=== PATIENT | female | born 1960 | race Caucasian/White ===

== ENCOUNTER 2018-02-12 18:07 | Emergency (ER) | payer SELFPAY ==
[2018-02-12 18:20] VITALS: BP 151/70; PULSE 66; TEMP 98.5; BMI 27.4
--- NOTE | 2018-02-12 18:21 | PDOC ---
Rapid Medical Evaluation Time Seen by Provider: 02/12/18 18:16 Medical Evaluation: Allergies Allergy/AdvReac Type Severity Reaction Status Date / Time No Known Allergies Allergy Verified 02/12/18 18:17 02/12/18 18:17 The patient complaints of: throbbing occipital head pain x 3weeks without nausea , visual changes, recent fall, or MVA. No hx of headache or imaging On brief exam: vss, perrl, no cervical tenderness The patient was ordered for: head ct The patient will proceed to the ED Discharge Disposition - Diagnosis Headache - Referrals - Patient Instructions - Post Discharge Activity
[2018-02-12] MEDS ORDERED: KETOROLAC TROMETHAMINE 30 MG/1 ML VIAL IVPUSH ONE (19:28)
[2018-02-12] MEDS ORDERED: METOCLOPRAMIDE HCL INJECTION 10 MG/2 ML VIAL IVPUSH ONE (19:28)
[2018-02-12] MEDS ORDERED: SODIUM CHLORIDE 1,000 ML IV STA (19:29)
--- NOTE | 2018-02-12 19:36 | PDOC ---
History of Present Illness - General Chief Complaint: Headache Stated Complaint: HEADACHE Time Seen by Provider: 02/12/18 18:16 History Source: Patient Exam Limitations: No Limitations - History of Present Illness Initial Comments: 02/12/18 19:28 HISTORY OF PRESENT ILLNESS: This is a 57-year-old woman past medical history of headaches who presents emergency Department with occipital headache for 3 weeks. Patient is tried [id number] medications such as Advil, Tylenol and Excedrin with minimal relief of pain. Patient states the pain is an 8/10 and describes as a feeling that "I'm being punched in the head." Patient denies any trauma or blurry vision. Patient denies fevers, chills, nausea, vomiting. No recent travel or sick contacts. PAST MEDICAL HISTORY: see HPI SURGICAL HISTORY: Denies ALLERGIES: No known drug allergies REVIEW OF SYSTEMS General/Constitutional: Denies fever or chills. Denies weakness, weight change. HEENT: Denies change in vision. Denies ear pain or discharge. Denies sore throat. Cardiovascular: Denies chest pain or shortness of breath. Respiratory: Denies cough, wheezing, or hemoptysis. Gastrointestinal: Denies nausea, vomiting, diarrhea or constipation. Denies rectal bleeding. Genitourinary: Denies dysuria, frequency, or change in urination. Musculoskeletal: Denies joint or muscle swelling or pain. Denies neck or back pain. Skin and breasts: Denies rash or easy bruising. Neurologic: Occipital headache. No vertigo, loss of consciousness, or loss of sensation. Psychiatric: Denies depression or anxiety. Endocrine: Denies increased thirst. Denies abnormal weight change. Hematologic/Lymphatic: Denies anemia, easy bleeding, or history of blood clots. Allergic/Immunologic: Denies hives or skin allergy. Denies latex allergy. PHYSICAL EXAM General Appearance: Well-appearing, appropriately dressed. No apparent distress , no intoxication. HEENT: EOMI, PERRLA, normal ENT inspection, normal voice, TMs normal, pharynx normal. No conjunctival pallor. No photophobia, scleral icterus. Neck: Supple. Trachea midline. No tenderness, rigidity, carotid bruit, stridor , lymphadenopathy, or thyromegaly. Respiratory/Chest: Lungs CTAB. No shortness of breath, chest tenderness, respiratory distress, accessory muscle use. No crackles, rales, rhonchi, stridor , wheezing, dullness Cardiovascular: RRR. S1, S2. No JVD, murmur, bradycardia, tachycardia. Vascular Pulses: Dorsalis-Pedis (R): 2+, Dorsalis-Pedis (L): 2+ Gastrointestinal/Abdominal: Normal bowel sounds. Abdomen soft, non-distended. No tenderness or rebound tenderness. No organomegaly, pulsatile mass, guarding, hernia, hepatomegaly, splenomegaly. Lymphatic: No adenopathy, tenderness. Musculoskeletal/Extremities: Normal inspection. FROM of all extremities, normal capillary refill. Pelvis Stable. No CVA tenderness. No tenderness to extremities, pedal edema, swelling, erythema or deformity. Integumentary: Appropriate color, dry, warm. No cyanosis, erythema, jaundice or rash Neurologic: Fully oriented, alert. Appropriate mood/affect. Motor strength 5/ 5. No appreciable EOM palsy, or sensory deficit. Right sided facial palsy present which states is her baseline. Other CN testing WNL. Past History - Past Medical History Allergies/Adverse Reactions: Allergies Allergy/AdvReac Type Severity Reaction Status Date / Time No Known Allergies Allergy Verified 02/12/18 18:17 Home Medications: Ambulatory Orders NK [No Known Home Medication] 02/12/18 COPD: No - Surgical History Cholecystectomy: Yes - Immunization History Immunization Up to Date: Yes - Suicide/Smoking/Psychosocial Hx Smoking History: Never smoked Hx Alcohol Use: No Drug/Substance Use Hx: No *Physical Exam - Vital Signs Last Vital Signs Temp Pulse Resp BP Pulse Ox 98.5 F 66 18 151/70 100 02/12/18 18:18 02/12/18 18:18 02/12/18 18:18 02/12/18 18:18 02/12/18 18:18 Medical Decision Making - Medical Decision Making 02/12/18 19:32 A/P: 57-year-old woman occipital headache for 3 weeks Right facial palsy present at the nasolabial fold- states this is her baseline Other cranial nerve testing is within normal limits PERRLA, EOMI No meningismus present Ambulatory with steady gait Moves all extremities with 5/5 strength This patient has normal neurologic exam this is most likely her usual headache pattern. I'll treat the patient with Toradol, Benadryl, Reglan, IV fluids and reassess. CT of the head as read by Dr. Nava: No CT evidence of acute intercranial pathology. Apparent incidental note is made of 0.7 x 0.5 cm slightly expansile sharply marginated focus within the left inferior calvarium is noted. Correlation with 3 month follow-up CT or MRI suggested to document stability. 02/12/18 20:31 Patient states complete relief of headache after receiving medications and IV fluids. I will discharge the patient home to follow-up with neurology as an outpatient for continued evaluation of her headaches. Incidental finding on CAT scan is been explained to the patient who verbalizes understanding of follow-up and need for repeat cranial imaging in 3 months. *DC/Admit/Observation/Transfer Diagnosis at time of Disposition: Headache Qualifiers: Headache type: other headache syndrome Qualified Code(s): G44.89 - Other headache syndrome - Discharge Dispostion Disposition: HOME Condition at time of disposition: Stable Decision to Admit order: No - Referrals Referrals: Raza Bender MD [Staff Physician] - - Patient Instructions Additional Instructions: Take Tylenol or Motrin as needed for headaches. Keep a diary of all food to eat and activities performed prior to headaches starting. Make an appointment with her primary doctor for reevaluation within the next week. Return to emergency department for worsening headache, blurry vision, dizziness , nausea, vomiting or any other concerns. Thank you very much for for choosing us to provide emergent health care needs. - Post Discharge Activity
[2018-02-12] MEDS ORDERED: KETOROLAC TROMETHAMINE 30 MG/1 ML VIAL ONE (19:45)
[2018-02-12] MEDS ORDERED: METOCLOPRAMIDE HCL INJECTION 10 MG/2 ML VIAL ONE (19:45)
== END 2018-02-12 20:33 | disposition home or self-care (01) ==
LOC: JERFT 18:07
PROC: 3E0337Z Introduction of Electrolytic and Water Balance Substance into Peripheral Vein, Percutaneous Approach (ICD-10-PCS; principal; 2018-02-12)
PROC: 3E0333Z Introduction of Anti-inflammatory into Peripheral Vein, Percutaneous Approach (ICD-10-PCS; 2018-02-12)
PROC: 3E033GC Introduction of Other Therapeutic Substance into Peripheral Vein, Percutaneous Approach (ICD-10-PCS; 2018-02-12)
PROC: 3E033GC Introduction of Other Therapeutic Substance into Peripheral Vein, Percutaneous Approach (ICD-10-PCS; 2018-02-12)
DX: G44.89 Other headache syndrome (principal)
CPT/HCPCS: 70450-TC; 99281-25; J7030